=== PATIENT | male | born 1955 | race Caucasian/White ===

== ENCOUNTER 2017-04-25 17:03 | Emergency (ER) | payer MEDICAID ==
[~2017-04-25] VITALS: Ht 167.6 cm; Wt 71.0 kg
[2017-04-25] MEDS ORDERED: CEFTRIAXONE 1 G PREMIX 50 ML IV ONE (18:45)
[2017-04-25 19:07] LABS: EOSINOPHILS % 1.9 % (0.0-5.0); HEMATOCRIT. 40.4 % (42.0-52.0); MEAN CORPUSCULAR HEMOGLOBIN 31.9 pg (28.0-32.0); MEAN PLATELET VOLUME 7.8 fl (7.4-10.4); MONOCYTES % 8.5 % (2.0-8.0); NEUTROPHILS % 56.6 % (40.0-76.0); PLATELET 248 x1000/uL (130-400); RED BLOOD CELL COUNT 4.39 mill/uL (4.7-6.1); RED CELL DISTRIBUTION WIDTH 12.9 % (11.6-14.6)
[2017-04-25 19:16] LABS: PARTIAL THROMBOPLASTIN TIME 26.8 sec (23.4-31.0); PROTHROMBIN TIME 10.7 sec (9.4-11.6)
[2017-04-25 19:19] LABS: CLARITY URINE CLOUDY (CLEAR); COLOR URINE ORANGE (YELLOW); KETONES URINE NEGATIVE (NEGATIVE); LEUKOCYTE ESTERASE URINE TRACE (NEGATIVE); NITRITE URINE NEGATIVE (NEGATIVE); OCCULT BLOOD URINE 3+ (NEGATIVE); PROTEIN URINE 1+ (NEGATIVE); SPECIFIC GRAVITY URINE 1.021 (1.005-1.030)
[2017-04-25 19:51] VITALS: BP 109/73
== END 2017-04-25 20:17 | disposition home or self-care (01) ==
LOC: ER 18:50
DX: N40.1 Benign prostatic hyperplasia with lower urinary tract symptoms (principal); N39.0 Urinary tract infection, site not specified; R35.0 Frequency of micturition; R00.1 Bradycardia, unspecified; Z72.0 Tobacco use; Z71.6 Tobacco abuse counseling
CPT/HCPCS: 36415; 80048; 81001; 85025; 85610; 85730; 87086; 93005; 96365; 99285; J0696

== ENCOUNTER 2017-04-27 15:03 | Emergency (ER) | payer MEDICAID ==
[~2017-04-27] VITALS: Ht 170.2 cm; Wt 70.0 kg
[2017-04-27 17:14] LABS: CLARITY URINE TURBID (CLEAR); COLOR URINE RED (YELLOW); GLUCOSE URINE NEGATIVE (NEGATIVE); KETONES URINE NEGATIVE (NEGATIVE); LEUKOCYTE ESTERASE URINE 2+ (NEGATIVE); NITRITE URINE POSITIVE (NEGATIVE); OCCULT BLOOD URINE 2+ (NEGATIVE); PROTEIN URINE 2+ (NEGATIVE); SPECIFIC GRAVITY URINE 1.026 (1.005-1.030); UROBILINOGEN URINE 0.2 E.U./dL (0.2-1.0)
[2017-04-27 17:37] LABS: BASOPHILS % 1.2 % (0.0-2.0); CHLORIDE 107 mEq/L (98-107); EOSINOPHILS % 1.4 % (0.0-5.0); HEMATOCRIT. 40.6 % (42.0-52.0); HEMOGLOBIN. 14.4 g/dL (14.0-18.0); LYMPHOCYTES % 30.9 % (20.0-50.0); MEAN CORPUSCULAR HEMOGLOBIN 32.1 pg (28.0-32.0); MEAN CORPUSCULAR VOLUME 90.9 fL (80.0-94.0); MEAN PLATELET VOLUME 7.8 fl (7.4-10.4); MONOCYTES % 8.1 % (2.0-8.0); NEUTROPHILS % 58.4 % (40.0-76.0); PLATELET 241 x1000/uL (130-400); RED BLOOD CELL COUNT 4.47 mill/uL (4.7-6.1); RED CELL DISTRIBUTION WIDTH 12.9 % (11.6-14.6)
[2017-04-27 17:45] LABS: CARBON DIOXIDE 25 mEq/L (21-32)
[2017-04-27] MEDS ORDERED: LEVOFLOXACIN 750MG PREMIX 150 ML IV ONE (17:45)
[2017-04-27] MEDS ORDERED: MORPHINE SULFATE 4 MG/ML CPJ (NOT FOR IM USE) IV ONE (21:30)
[2017-04-27 22:01] VITALS: BP 115/94
== END 2017-04-27 23:04 | disposition home or self-care (01) ==
LOC: ER 15:03
DX: N39.0 Urinary tract infection, site not specified (principal); N40.0 Benign prostatic hyperplasia without lower urinary tract symptoms
CPT/HCPCS: 36415; 51702; 76770; 80053; 81001; 85025; 87086; 96365; 96375; 99285; J1956; J2270; Z7610; A4315

== ENCOUNTER 2017-06-02 01:45 | Inpatient (IN) | payer MEDICAID ==
[~2017-06-02] VITALS: Ht 170.2 cm; Wt 72.6 kg
[2017-06-02 11:28] LABS: HEMATOCRIT. 42.7 % (42.0-52.0); HEMOGLOBIN. 14.5 g/dL (14.0-18.0); MEAN CORPUSCULAR HEMOGLOBIN 30.7 pg (28.0-32.0); MEAN CORPUSCULAR VOLUME 90.6 fL (80.0-94.0); MEAN PLATELET VOLUME 7.7 fl (7.4-10.4); PLATELET 280 x1000/uL (130-400); RED BLOOD CELL COUNT 4.72 mill/uL (4.7-6.1)
[2017-06-02 11:42] LABS: CARBON DIOXIDE 28 mEq/L (21-32); CHLORIDE 104 mEq/L (98-107)
[2017-06-02 11:43] LABS: PLATELET ESTIMATE NORMAL
[2017-06-02] MEDS ORDERED: CEFTRIAXONE 1 G PREMIX 50 ML IV ONE (12:30)
[2017-06-02 12:36] LABS: CLARITY URINE CLOUDY (CLEAR); COLOR URINE YELLOW (YELLOW); KETONES URINE NEGATIVE (NEGATIVE); LEUKOCYTE ESTERASE URINE 2+ (NEGATIVE); NITRITE URINE POSITIVE (NEGATIVE); OCCULT BLOOD URINE NEGATIVE (NEGATIVE); PROTEIN URINE NEGATIVE (NEGATIVE)
[2017-06-02] MEDS ORDERED: ONDANSETRON HCL 4MG/2ML VIAL IV PRN (13:45)
[2017-06-02] MEDS ORDERED: HYDROCODONE/ACETAMINOPHEN 5/325MG TABLET PO PRN (13:45)
[2017-06-02] MEDS ORDERED: DOCUSATE SODIUM 100MG CAPSULE PO PRN (13:45)
[2017-06-02] MEDS ORDERED: MAGNESIUM/ALUMINUM HYDROXIDE/SIMETHICONE 30ML UDC PO PRN (13:45)
[2017-06-02] MEDS ORDERED: CLONIDINE 0.1MG TABLET PO PRN (13:45)
[2017-06-02] MEDS: ACETAMINOPHEN 325MG TABLET PO PRN (17:38)
[2017-06-02] MEDS ORDERED: KETOROLAC 30MG/ML VIAL IV ONE (18:15)
[2017-06-02 21:15] VITALS: BP 86/50
[2017-06-02 21:45] VITALS: BP 86/50
[2017-06-02] MEDS: SODIUM CHLORIDE 0.9% 1,000 ML IV SCH (22:41)
[2017-06-02] MEDS ORDERED: HYDR-4001 PO (23:50)
[2017-06-02] MEDS ORDERED: FINA5TAB11 PO (23:50)
[2017-06-02] MEDS ORDERED: TAMS0.4C31 PO (23:50)
[2017-06-03] VITALS (7 sets, daily range): BP systolic 87–125; BP diastolic 50–62
[2017-06-03] MEDS: ACETAMINOPHEN 325MG TABLET PO PRN ×3 (02:44→23:56)
[2017-06-03 07:51] LABS: HEMATOCRIT. 36.6 % (42.0-52.0); HEMOGLOBIN. 12.8 g/dL (14.0-18.0); MEAN CORPUSCULAR HEMOGLOBIN 31.8 pg (28.0-32.0); MEAN CORPUSCULAR VOLUME 90.7 fL (80.0-94.0); MEAN PLATELET VOLUME 8.1 fl (7.4-10.4); PLATELET 206 x1000/uL (130-400); RED BLOOD CELL COUNT 4.03 mill/uL (4.7-6.1); RED CELL DISTRIBUTION WIDTH 12.7 % (11.6-14.6)
[2017-06-03] MEDS: TAMSULOSIN HCL 0.4MG SR CAPSULE PO SCH (08:22)
[2017-06-03] MEDS: FINASTERIDE 5MG TABLET PO SCH (08:22)
[2017-06-03] MEDS: SODIUM CHLORIDE 0.9% 1,000 ML IV SCH (11:35)
[2017-06-03] MEDS ORDERED: CEFTRIAXONE 1 G PREMIX 50 ML IV SCH (13:30)
[2017-06-03 15:38] LABS: PLATELET ESTIMATE NORMAL
[2017-06-03] MEDS: PIPERACILLIN/TAZ 3.375G PREMIX 50 ML IV SCH (19:36)
[2017-06-04] MEDS: SODIUM CHLORIDE 0.9% 1,000 ML IV SCH ×2 (00:56→11:05)
[2017-06-04 04:00] VITALS: BP 94/53
[2017-06-04] MEDS: PIPERACILLIN/TAZ 3.375G PREMIX 50 ML IV SCH ×3 (04:00→20:27)
[2017-06-04] MEDS: FINASTERIDE 5MG TABLET PO SCH (06:26)
[2017-06-04 07:24] LABS: BASOPHILS % 0.6 % (0.0-2.0); EOSINOPHILS % 0.7 % (0.0-5.0); HEMATOCRIT. 35.9 % (42.0-52.0); HEMOGLOBIN. 12.6 g/dL (14.0-18.0); LYMPHOCYTES % 12.9 % (20.0-50.0); MEAN CORPUSCULAR HEMOGLOBIN 31.8 pg (28.0-32.0); MEAN CORPUSCULAR VOLUME 90.3 fL (80.0-94.0); MONOCYTES % 11.9 % (2.0-8.0); NEUTROPHILS % 73.9 % (40.0-76.0); PLATELET 191 x1000/uL (130-400); RED BLOOD CELL COUNT 3.98 mill/uL (4.7-6.1)
[2017-06-04 08:00] VITALS: BP 106/62
[2017-06-04] MEDS: TAMSULOSIN HCL 0.4MG SR CAPSULE PO SCH (08:14)
[2017-06-04 12:00] VITALS: BP 104/54
[2017-06-04 16:00] VITALS: BP 101/59
[2017-06-04 20:00] VITALS: BP 112/67
[2017-06-04 23:48] VITALS: BP 113/64
[2017-06-05] MEDS: SODIUM CHLORIDE 0.9% 1,000 ML IV SCH ×2 (00:48→15:52)
[2017-06-05] MEDS: PIPERACILLIN/TAZ 3.375G PREMIX 50 ML IV SCH ×3 (03:48→20:19)
[2017-06-05 03:59] VITALS: BP 91/50
[2017-06-05] MEDS: FINASTERIDE 5MG TABLET PO SCH (06:20)
[2017-06-05 07:17] LABS: BASOPHILS % 0.5 % (0.0-2.0); EOSINOPHILS % 0.7 % (0.0-5.0); HEMATOCRIT. 37.4 % (42.0-52.0); HEMOGLOBIN. 12.9 g/dL (14.0-18.0); LYMPHOCYTES % 13.9 % (20.0-50.0); MEAN CORPUSCULAR HEMOGLOBIN 30.7 pg (28.0-32.0); MEAN CORPUSCULAR VOLUME 89.2 fL (80.0-94.0); MEAN PLATELET VOLUME 8.2 fl (7.4-10.4); MONOCYTES % 13.1 % (2.0-8.0); NEUTROPHILS % 71.8 % (40.0-76.0); PLATELET 230 x1000/uL (130-400); RED BLOOD CELL COUNT 4.19 mill/uL (4.7-6.1); RED CELL DISTRIBUTION WIDTH 12.9 % (11.6-14.6)
[2017-06-05] MEDS: TAMSULOSIN HCL 0.4MG SR CAPSULE PO SCH (08:38)
[2017-06-05 12:00] VITALS: BP 112/72
[2017-06-05] MEDS: ACETAMINOPHEN 325MG TABLET PO PRN (12:21)
[2017-06-05 16:00] VITALS: BP 95/56
[2017-06-05 20:00] VITALS: BP 109/56
[2017-06-06] VITALS: BP 102/60
[2017-06-06 04:00] VITALS: BP 104/60
[2017-06-06] MEDS: PIPERACILLIN/TAZ 3.375G PREMIX 50 ML IV SCH ×2 (05:05→11:26)
[2017-06-06] MEDS: FINASTERIDE 5MG TABLET PO SCH (06:14)
[2017-06-06] MEDS: SODIUM CHLORIDE 0.9% 1,000 ML IV SCH (06:15)
[2017-06-06 08:00] VITALS: BP 97/55
[2017-06-06] MEDS: TAMSULOSIN HCL 0.4MG SR CAPSULE PO SCH (08:23)
[2017-06-06] MEDS: ACETAMINOPHEN 325MG TABLET PO PRN (10:11)
[2017-06-06 13:08] VITALS: BP 97/55
== END 2017-06-06 13:35 | disposition home or self-care (01) | DRG 720 ==
LOC: ER 01:45 → 8WST 13:00 → EDBEDREQ 13:06 → EDBEDREQTM 13:06 → ENRESERV 18:05
PROVIDERS: ADMIT Internal Medicine; ATTEND Internal Medicine
DX: A41.50 Gram-negative sepsis, unspecified (principal); N17.0 Acute kidney failure with tubular necrosis; N13.8 Other obstructive and reflux uropathy; N39.0 Urinary tract infection, site not specified; N18.9 Chronic kidney disease, unspecified; R33.8 Other retention of urine; N40.1 Benign prostatic hyperplasia with lower urinary tract symptoms; Z87.891 Personal history of nicotine dependence
CPT/HCPCS: 36415; 71045; 80048; 80053; 80061; 81001; 83605; 84153; 85025; 87040; 87077; 87086; 87186; 93970; 96365; 96375; 99285; J0696; J1885; J2543; J7030; A4315